=== PATIENT | male | born 1985 | race Two or more races ===

== ENCOUNTER 2023-07-30 23:36 | Emergency (ER) | payer SELFPAY ==
[~2023-07-30] VITALS: Ht 190.5 cm; Wt 102.0 kg
[2023-07-31] MEDS ORDERED: IBUP-1456 PO (03:04)
[2023-07-31] MEDS ORDERED: KETOROLAC TROMETH 60MG/2ML VIAL IM ONE (03:15)
[2023-07-31 05:36] VITALS: BP 108/72; PULSE 64; RESP 16; TEMP 98.7; O2SAT 99
== END 2023-07-31 03:54 | disposition home or self-care (01) ==
LOC: ER 23:36
DX: S90.111A Contusion of right great toe without damage to nail, initial encounter (principal); W22.8XXA Striking against or struck by other objects, initial encounter; Y93.89 Activity, other specified; Y92.89 Other specified places as the place of occurrence of the external cause; Y99.8 Other external cause status
CPT/HCPCS: 73630; 96372; 99283; J1885